=== PATIENT | male | born 1970 ===

== ENCOUNTER 2019-10-19 13:18 | Emergency (ER) | payer OTHER ==
[~2019-10-19] VITALS: Ht 172.7 cm; Wt 79.4 kg
[2019-10-19] MEDS ORDERED: COZAAR50 MG (13:44)
== END 2019-10-19 16:20 | disposition home or self-care (01) ==
LOC: ER 13:18
DX: S60.222A Contusion of left hand, initial encounter (principal); W18.39XA Other fall on same level, initial encounter; Y93.89 Activity, other specified; Y92.89 Other specified places as the place of occurrence of the external cause; Y99.8 Other external cause status